=== PATIENT | female | born 1990 | race Two or more races ===

== ENCOUNTER 2018-06-18 12:42 | Outpatient (CLI) | payer OTHER ==
[2018-06-18] MEDS: ACETAMINOPHEN 325 MG TAB PO (13:23)
== END 2018-06-18 15:32 | disposition home or self-care (01) ==
LOC: OBT 12:42 → L-D 12:42 → OBT 15:32
DX: O36.8130 Decreased fetal movements, third trimester, not applicable or unspecified (principal); Z3A.30 30 weeks gestation of pregnancy
CPT/HCPCS: 76815; 76817; 76818